=== PATIENT | male | born 1970 | race African-American/Black ===

== ENCOUNTER 2024-03-18 14:42 | Outpatient (CLI) | payer OTHER | END 2024-03-18 14:43 | disposition home or self-care (01) | LOC: NAV RAD 14:42 | PROVIDERS: ATTEND Family Medicine | DX: M51.16 Intervertebral disc disorders with radiculopathy, lumbar region (principal); M47.26 Other spondylosis with radiculopathy, lumbar region | CPT/HCPCS: 72100 ==